=== PATIENT | male | born 1975 | race Caucasian/White ===

== ENCOUNTER → 2018-01-05 | Outpatient (CLI) | payer OTHER ==
[~2018-01-05] MED LIST: CYCL10TA9 PO; DOXY100C2 PO; MELO-195 PO; MPR22TI TP; MULT1CAP27 PO; SILV25CR TP; TRM50T PO
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
== END ==
LOC: RAD 09:08
PROVIDERS: ATTEND Physician Assistant
DX: M48.061 Spinal stenosis, lumbar region without neurogenic claudication (principal); M51.17 Intervertebral disc disorders with radiculopathy, lumbosacral region; M99.53 Intervertebral disc stenosis of neural canal of lumbar region; M89.38 Hypertrophy of bone, other site; V49.9XXD Car occupant (driver) (passenger) injured in unspecified traffic accident, subsequent encounter
CPT/HCPCS: 72148

== ENCOUNTER → 2018-10-10 | Outpatient (CLI) | payer OTHER ==
--- NOTE | 2018-10-10 15:36 | Diagnostic Imaging Report ---
PROCEDURE: US Thyroid. TECHNIQUE: Multiple real-time grayscale images were obtained of the thyroid in various projections. INDICATION: Thyroid nodule. FINDINGS: Right thyroid lobe is 4.8 cm and the left lobe 4.0 cm. Echotexture appears homogeneous and color Doppler blood flow is normal. The isthmus appears normal. No abnormality. IMPRESSION: Normal sonographic appearance of the nonfocal thyroid. Dictated by: Dictated on workstation # [id number]
== END ==
LOC: RAD 09:34
PROVIDERS: ATTEND Nurse Practitioner Family
DX: E04.1 Nontoxic single thyroid nodule (principal)
CPT/HCPCS: 76536

== ENCOUNTER 2018-12-18 23:11 | Emergency (ER) | payer OTHER ==
[~2018-12-18] VITALS: Ht 182.9 cm; Wt 103.4 kg
[2018-12-18] MEDS ORDERED: LIDOCAINE 1% INJ 20 ML 20 ML VIAL INJ ONE (23:30)
[2018-12-18] MEDS ORDERED: TETANUS,DIPTH,PERTUSS P/F (BOOSTRIX) 0.5 ML VIAL IM ONE (23:30)
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
--- NOTE | 2018-12-19 00:10 | NUR ---
X9 4-O PROLENE SUTURES PLACED TO RT ELBOW BY DR. REED. APPROX 10ML LIDOCAINE SC.
[2018-12-19] MEDS ORDERED: SULF1TAB35 PO (00:11)
[2018-12-19 00:20] VITALS: BP 168/100
== END 2018-12-19 00:20 | disposition home or self-care (01) ==
LOC: EDUNIT# 23:11 → ER 23:14
DX: S51.011A Laceration without foreign body of right elbow, initial encounter (principal); F17.200 Nicotine dependence, unspecified, uncomplicated; R40.2142 Coma scale, eyes open, spontaneous, at arrival to emergency department; R40.2252 Coma scale, best verbal response, oriented, at arrival to emergency department; R40.2362 Coma scale, best motor response, obeys commands, at arrival to emergency department; Z23 Encounter for immunization; Z88.5 Allergy status to narcotic agent; W18.30XA Fall on same level, unspecified, initial encounter
CPT/HCPCS: 12002

== ENCOUNTER → 2019-02-06 | Outpatient (CLI) | payer OTHER ==
[~2019-02-06] MED LIST changes: +SULF1TAB35 PO
--- NOTE | 2019-02-06 12:45 | Diagnostic Imaging Report ---
INDICATION: Echo something snap in wrist while bowling a couple of weeks ago. Pain. TECHNIQUE: 3 views of the right wrist CORRELATION STUDY: None FINDINGS: The osseous structures of the wrist have an unremarkable appearance. Alignment is anatomic. There is no acute bony abnormality. The visualized soft tissues appearing unremarkable. IMPRESSION: 1. Negative examination of the wrist. Given symptoms, if further assessment is desired, MRI of the wrist would be recommended. Dictated by: Dictated on workstation # [id number]
== END ==
LOC: RAD 12:02
PROVIDERS: ATTEND Nurse Practitioner Family
DX: M25.531 Pain in right wrist (principal)
CPT/HCPCS: 73110

== ENCOUNTER → 2019-02-18 | Outpatient (CLI) | payer OTHER ==
--- NOTE | 2019-02-18 12:46 | Diagnostic Imaging Report ---
PROCEDURE: MRI right joint upper extremity without contrast. TECHNIQUE: Multiplanar, multisequence non contrast-enhanced MRI of the right upper extremity was accomplished. INDICATION: Right wrist pain, bowling injury in November 2018, felt a pop. History of bilateral carpal tunnel surgery. Pain at the dorsal aspect of the wrist. COMPARISON: Radiographs from 02/06/2019. FINDINGS: No acute fracture is seen in the right wrist. Small subcortical cyst-like changes are seen in the capitate and the proximal scaphoid. There is mild bone marrow edema in the distal scaphoid, may represent degenerative change or mild contusion. No significant joint effusion is seen. There is fluid in the pisotriquetral recess with a small 3 mm hypointensity which could represent a small joint body. The scapholunate ligament is torn. The lunotriquetral ligament demonstrates mildly increased signal but appears to be intact. There is partial tearing of the triangular fibrocartilage disc. The flexor tendons appear intact. There is mild thickening of the flexor retinaculum, which may be from remote surgery. The median nerve appears normal. No significantly increased fluid is seen in the extensor compartment tendon sheaths. The extensor tendons appear intact. There is moderate edema in the pronator quadratus. No soft tissue fluid collections are seen. No significant muscular atrophy is seen. IMPRESSION: 1. Tear of the scapholunate ligament in the right wrist. Partial tearing of the triangular fibrocartilage disc. There is increased signal in the lunotriquetral ligament without complete tear seen. 2. Grade 1-2 strain of the pronator quadratus muscle. Dictated by: Dictated on workstation # [id number]
== END ==
LOC: RAD 09:34
PROVIDERS: ATTEND Family Medicine
DX: S63.591A Other specified sprain of right wrist, initial encounter (principal); S66.811A Strain of other specified muscles, fascia and tendons at wrist and hand level, right hand, initial encounter; Z98.890 Other specified postprocedural states
CPT/HCPCS: 73221

== ENCOUNTER → 2020-06-03 | Outpatient (CLI) | payer OTHER | LOC: LABNPT 05:54 | PROVIDERS: ATTEND Family Medicine | DX: M79.10 Myalgia, unspecified site (principal); R10.9 Unspecified abdominal pain; Z20.828 Contact with and (suspected) exposure to other viral communicable diseases | CPT/HCPCS: 87635 ==

== ENCOUNTER → 2020-07-13 | Outpatient (CLI) | payer OTHER ==
--- NOTE | 2020-07-13 12:42 | Diagnostic Imaging Report ---
PROCEDURE: US Thyroid. TECHNIQUE: Multiple real-time grayscale images were obtained of the thyroid in various projections. INDICATION: Abnormal thyroid function studies. Right lobe of thyroid measures 5.3 x 1.9 x 1.7 cm and the left lobe measures 4.3 x 1.5 x 1.7 cm. Isthmus is 4 mm in thickness. Thyroid demonstrates homogeneous echotexture. No discrete thyroid mass is identified. IMPRESSION: Unremarkable thyroid ultrasound. Dictated by: Dictated on workstation # [id number]
== END ==
LOC: RAD 09:30
PROVIDERS: ATTEND Family Medicine
DX: R94.6 Abnormal results of thyroid function studies (principal)
CPT/HCPCS: 76536

== ENCOUNTER → 2020-07-21 | Outpatient (CLI) | payer OTHER | LOC: LABNPT 08:19 | PROVIDERS: ATTEND Family Medicine | DX: U07.1 COVID-19 (principal) | CPT/HCPCS: 87635 ==

== ENCOUNTER → 2020-08-10 | Outpatient (CLI) | payer OTHER ==
--- NOTE | 2020-08-10 17:13 | Diagnostic Imaging Report ---
HISTORY: Worsening neck pain with popping. TECHNIQUE: Three views of the cervical spine. COMPARISON: CT scan from 03/16/2012. FINDINGS: Alignment appears normal with no spondylolisthesis. Vertebral body heights and disc heights are preserved. No acute fracture is seen. Prevertebral soft tissues appear normal. The C1-C2 alignment is unremarkable. IMPRESSION: 1. No acute osseous abnormality is seen in the cervical spine. Dictated by: Dictated on workstation # [id number]
== END ==
LOC: RAD 13:56
PROVIDERS: ATTEND Nurse Practitioner Family
DX: M54.2 Cervicalgia (principal); U07.1 COVID-19
CPT/HCPCS: 72040

== ENCOUNTER → 2020-08-20 | Outpatient (CLI) | payer OTHER ==
--- NOTE | 2020-08-20 11:11 | Diagnostic Imaging Report ---
PROCEDURE: MR imaging cervical spine without contrast. INDICATION: Popping in neck after hitting head. TECHNIQUE: Multiplanar, multisequence MR imaging of the cervical spine was performed without contrast. CORRELATION STUDY: 09/25/2007, radiographs 08/10/2020 FINDINGS: Cervical spine alignment anatomic. Cervical vertebral body heights are maintained. Odontoid intact. Craniocervical junction unremarkable. The cord is of normal caliber and signal intensity. C2-C3 level: Unremarkable. C3-C4 level: Very mild posterior spondylitic ridging. No significant canal or foraminal narrowing. C4-C5 level: Minimal degenerative spurring at endplates. No canal or foraminal narrowing. C5-C6 level: Unremarkable. C6-C7 level: Unremarkable. C7-T1 level: Unremarkable. IMPRESSION: 1. Mild degenerative changes of the cervical spine. No findings to suggest an acute injury. No significant canal or foraminal stenosis. Dictated by: Dictated on workstation # [id number]
== END ==
LOC: RAD 09:49
PROVIDERS: ATTEND Family Medicine
DX: M47.812 Spondylosis without myelopathy or radiculopathy, cervical region (principal)
CPT/HCPCS: 72141

== ENCOUNTER → 2021-06-07 | Outpatient (CLI) | payer OTHER ==
[~2021-06-07] MED LIST changes: -SULF1TAB35 PO; +SULF1TAB38 PO
[2021-06-07 10:12] LABS: BASOPHILS % (AUTO) 0 % (0-10); EOSINOPHILS # (AUTO) 0.1 10^3/uL (0.0-0.3); EOSINOPHILS % (AUTO) 4 % (0-10); HEMATOCRIT 45 % (40-54); HEMOGLOBIN 16.3 g/dL (13.3-17.7); LYMPHOCYTES # (AUTO) 1.1 10^3/uL (1.0-4.0); LYMPHOCYTES % (AUTO) 28 % (12-44); MEAN CORPUSCULAR HEMOGLOBIN 33 pg (25-34); MEAN CORPUSCULAR HGB CONC 36 g/dL (32-36); MEAN CORPUSCULAR VOLUME 92 fL (80-99); MEAN PLATELET VOLUME 10.7 fL (9.0-12.2); MONOCYTES # (AUTO) 0.3 10^3/uL (0.0-1.0); MONOCYTES % (AUTO) 8 % (0-12); NEUTROPHILS # (AUTO) 2.4 10^3/uL (1.8-7.8); NEUTROPHILS % (AUTO) 59 % (42-75); PLATELET COUNT 221 10^3/uL (130-400)
[2021-06-07 10:57] LABS: ALANINE AMINOTRANSFERASE 65 U/L (0-55); ALBUMIN 4.2 GM/DL (3.2-4.5); ALKALINE PHOSPHATASE 81 U/L (40-136); BILIRUBIN,TOTAL 0.7 MG/DL (0.1-1.0); BUN/CREATININE RATIO 10; CALCIUM 9.7 MG/DL (8.5-10.1); CARBON DIOXIDE 24 MMOL/L (21-32); CHLORIDE 105 MMOL/L (98-107); CHOLESTEROL 283 MG/DL (< 200); CREATININE SERUM 1.24 MG/DL (0.60-1.30); FREE T4 (FREE THYROXINE) 0.84 NG/DL (0.70-1.48); GFR ESTIMATED 63; GLUCOSE 103 MG/DL (70-105); HDL CHOLESTEROL 52 MG/DL (40-60); POTASSIUM 4.1 MMOL/L (3.6-5.0); SODIUM 139 MMOL/L (135-145); TOTAL PROTEIN 7.2 GM/DL (6.4-8.2); TRIGLYCERIDES 460 MG/DL (<150)
== END ==
LOC: LAB 09:54
PROVIDERS: ATTEND Family Medicine
DX: Z00.00 Encounter for general adult medical examination without abnormal findings (principal); I10 Essential (primary) hypertension; E78.2 Mixed hyperlipidemia
CPT/HCPCS: 36415; 80053; 80061; 84439; 84443; 85025

== ENCOUNTER 2022-02-23 00:42 | Emergency (ER) | payer OTHER ==
[~2022-02-23] VITALS: Ht 182.8 cm; Wt 100.7 kg
[2022-02-23 01:00] VITALS: BP 182/88
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
[2022-02-23] MEDS ORDERED: KETO10TA PO (01:51)
[2022-02-23] MEDS ORDERED: HYDR-34 PO (01:51)
--- NOTE | 2022-02-23 06:36 | Diagnostic Imaging Report ---
INDICATION: Right shoulder pain FINDINGS: 3 views the right shoulder demonstrate no fracture or dislocation. Articular surfaces are normal. No osseous lesion. IMPRESSION: Negative right shoulder. Dictated by: Dictated on workstation # [id number]
--- NOTE | 2022-02-23 06:36 | Diagnostic Imaging Report ---
INDICATION: Right clavicle pain FINDINGS: 2 views the right clavicle demonstrate no fracture or dislocation. Articular surfaces are normal. IMPRESSION: Negative right clavicle. Dictated by: Dictated on workstation # [id number]
== END 2022-02-23 01:54 | disposition home or self-care (01) ==
LOC: EDUNIT# 00:42 → ER 00:46
DX: S46.911A Strain of unspecified muscle, fascia and tendon at shoulder and upper arm level, right arm, initial encounter (principal); S43.51XA Sprain of right acromioclavicular joint, initial encounter; S61.304A Unspecified open wound of right ring finger with damage to nail, initial encounter; S40.022A Contusion of left upper arm, initial encounter; S40.021A Contusion of right upper arm, initial encounter; W18.30XA Fall on same level, unspecified, initial encounter; Y93.K1 Activity, walking an animal
CPT/HCPCS: 73000; 73030

== ENCOUNTER 2023-05-10 20:33 | Outpatient (CLI) | payer OTHER ==
[~2023-05-10 20:33] MED LIST changes: +HYDR-34 PO; +KETO10TA PO
== END 2023-05-11 05:30 ==
LOC: SLEEP 20:33
PROVIDERS: ATTEND Family Medicine
DX: G47.33 Obstructive sleep apnea (adult) (pediatric) (principal); G47.9 Sleep disorder, unspecified; R06.83 Snoring; I10 Essential (primary) hypertension; I25.9 Chronic ischemic heart disease, unspecified; F39 Unspecified mood [affective] disorder
CPT/HCPCS: 95811